=== PATIENT | male | born 1995 | race Caucasian/White ===

== ENCOUNTER 2017-04-02 20:37 | Emergency (ER) | payer OTHER ==
--- NOTE | 2017-04-02 22:13 | ERPHSYRPT ---
- History of Present Illness Time Seen by Provider: 04/02/17 22:00 Historian: patient Exam Limitations: no limitations Patient Subjective Stated Complaint: pt states he has been vomiting for last 3 days and has been feeling weak today. Triage Nursing Assessment: pt alert and oreinted, answers questions approp. pt ambulatory with steady gait ntoed. respriations nonlabored with lungs cta. abd soft and nontedner, bowel sounds presnt in all 4 quads. no emesis at this time Physician History: 21 y/o male comes to the ER with complaints of diffuse abdominal pain, nausea, vomiting and low grade fever for the past 3 days. Pt describes the pain as sharp , constant, 8/10 and pt has not been able to keep anything down. Pt denies any diarrhea, constipation, bloody stools or urinary symptoms. Pt has had hernia repair in the past. Timing/Duration: day(s) Activities at Onset: none Quality: sharpness Abdominal Pain Onset Location: generalized abdomen Pain Radiation: no radiation Severity of Pain-Max: severe Severity of Pain-Current: severe Modifying Factors: Improves With: nothing Associated Symptoms: loss of appetite Previous symptoms: no prior history Allergies/Adverse Reactions: No Known Drug Allergies Allergy (Unverified 07/08/14 18:11) Hx Tetanus, Diphtheria Vaccination/Date Given: Yes Hx Influenza Vaccination/Date Given: No Hx Pneumococcal Vaccination/Date Given: No Immunizations Up to Date: Yes - Review of Systems Constitutional: Fever, No Chills Eyes: No Symptoms Ears, Nose, & Throat: No Symptoms Respiratory: No Cough, No Dyspnea Cardiac: No Chest Pain, No Edema, No Syncope Abdominal/Gastrointestinal: Abdominal Pain, Nausea, Vomiting, Appetite Changes, No Diarrhea, No Constipation, No Hematemesis, No Hematochezia, No Melena Genitourinary Symptoms: No Dysuria, No Frequency, No Hematuria Musculoskeletal: No Back Pain, No Neck Pain Skin: No Rash Neurological: No Dizziness, No Focal Weakness, No Sensory Changes Psychological: No Symptoms Endocrine: No Symptoms All Other Systems: Reviewed and Negative - Past Medical History Pertinent Past Medical History: No Other Medical History: Periodic episodes of throat numbness-previous evaluations -undiagnosed - Past Surgical History Past Surgical History: Yes Gastrointestinal: Hernia Repair Other Surgical History: collar bone - Social History Smoking Status: Never smoker Exposure to second hand smoke: No Drug Use: none Patient Lives Alone: No Significant Family History: no pertinent family hx - Nursing Vital Signs Nursing Vital Signs: Initial Vital Signs Temperature 98.8 F 04/02/17 21:37 Pulse Rate 83 04/02/17 21:37 Respiratory Rate 16 04/02/17 21:37 Blood Pressure 129/75 04/02/17 21:37 O2 Sat by Pulse Oximetry 95 04/02/17 21:37 Pain Scale Pain Intensity 7 - Physical Exam General Appearance: mild distress, alert Eye Exam: PERRL/EOMI, eyes nml inspection Ears, Nose, Throat Exam: normal ENT inspection, pharynx normal, moist mucous membranes Neck Exam: normal inspection, non-tender, supple, full range of motion Respiratory Exam: normal breath sounds, lungs clear, No respiratory distress Cardiovascular Exam: regular rate/rhythm, normal heart sounds Gastrointestinal/Abdomen Exam: soft, tenderness, distention, No normal bowel sounds, No mass Back Exam: normal inspection, normal range of motion, No CVA tenderness, No vertebral tenderness Extremity Exam: normal inspection, normal range of motion, pelvis stable Neurologic Exam: alert, oriented x 3, cooperative, normal mood/affect, nml cerebellar function, sensation nml, No motor deficits Skin Exam: normal color, warm, dry SpO2: 95 Oxygen Delivery: Room Air - Course Nursing assessment & vital signs reviewed: Yes Ordered Tests: Active Orders 24 hr Category Date Time Status IV Insertion STAT Care 04/02/17 22:02 Active NPO (ED) STAT Care 04/02/17 22:02 Active ABDOMEN AND PELVIS W CONTRAST [CT] Stat Exams 04/02/17 22:02 Taken AMYLASE Stat Lab 04/02/17 22:19 Completed CBC W DIFF Stat Lab 04/02/17 22:19 Completed CMP Stat Lab 04/02/17 22:19 Completed LIPASE Stat Lab 04/02/17 22:19 Completed Lactic Acid Stat Lab 04/02/17 22:14 Completed UA W/RFX UR CULTURE Stat Lab 04/02/17 23:41 Completed Medication Summary Generic Name Dose Route Start Last Admin Trade Name Freq PRN Reason Stop Dose Admin Sodium Chloride 1,000 mls @ 999 mls/hr 04/02/17 22:58 Sodium Chloride 0.9% 1000 Ml IV 04/02/17 23:58 .Q1H1M STA Discontinued Medications Generic Name Dose Route Start Last Admin Trade Name Freq PRN Reason Stop Dose Admin Famotidine 20 mg 04/02/17 22:58 Pepcid 20 Mg Vial IV 04/02/17 22:59 STAT ONE Sodium Chloride 1,000 mls @ 999 mls/hr 04/02/17 22:02 04/02/17 23:02 Sodium Chloride 0.9% 1000 Ml IV 04/02/17 23:02 999 mls/hr .Q1H1M STA Administration Sodium Chloride Confirm 04/02/17 22:19 Sodium Chloride 0.9% 1000 Ml Administered 04/02/17 22:20 Dose 1,000 mls @ ud .ROUTE .STK-MED ONE Ketorolac Tromethamine 30 mg 04/02/17 22:58 Toradol 30 Mg Injection IV 04/02/17 22:59 STAT ONE Morphine Sulfate 4 mg 04/02/17 22:02 04/02/17 23:03 Morphine Sulfate 4 Mg Inj IV 04/02/17 22:03 4 mg STAT ONE Administration Morphine Sulfate Confirm 04/02/17 22:19 Morphine Sulfate 2 Mg Inj Administered 04/02/17 22:20 Dose 4 mg .ROUTE .STK-MED ONE Ondansetron HCl 4 mg 04/02/17 22:02 04/02/17 23:02 Zofran 4 Mg/2 Ml Vial IV 04/02/17 22:03 4 mg STAT ONE Administration Ondansetron HCl Confirm 04/02/17 22:19 Zofran 4 Mg/2 Ml Vial Administered 04/02/17 22:20 Dose 4 mg .ROUTE .STK-MED ONE Ondansetron HCl 4 mg 04/02/17 22:59 Zofran 4 Mg/2 Ml Vial IV 04/02/17 23:00 STAT ONE Lab/Rad Data: Laboratory Result Diagrams 04/02/17 22:19 04/02/17 22:19 Laboratory Results 04/02/17 04/02/17 04/02/17 Range/Units 23:41 22:19 22:19 WBC 11.5 H (4.0-10.5) K/mm3 RBC 5.22 (4.1-5.6) M/mm3 Hgb 15.0 (12.5-18.0) gm/dl Hct 45.6 (42-50) % MCV 87.4 (78-100) fl MCH 28.7 (26-32) pg MCHC 32.9 (32-36) g/dl RDW 14.4 H (11.5-14.0) % Plt Count 286 (150-450) K/mm3 MPV 9.9 H (6-9.5) fl Gran % 52.8 (36.0-66.0) % Lymphocytes % 36.9 (24.0-44.0) % Monocytes % 9.2 (0.0-12.0) % Eosinophils % 0.8 (0.00-5.0) % Basophils % 0.3 (0.0-0.4) % Basophils # 0.04 (0-0.4) Sodium 143 (136-145) mEq/L Potassium 3.7 (3.5-5.1) mEq/L Chloride 105 (98-107) mEq/L Carbon Dioxide 27.5 (21-32) mEq/L Anion Gap 14.0 (5-15) MEQ/L BUN 20 (9-20) mg/dL Creatinine 0.88 (0.55-1.30) mg/dl Estimated GFR > 60 ML/MIN Glucose 100 (70-110) MG/DL Lactic Acid (0.4-2.0) Calcium 10.1 (8.5-10.1) mg/dL Total Bilirubin 0.60 (0.2-1.0) mg/dL AST 40 H (15-37) U/L ALT 39 (12-78) U/L Alkaline Phosphatase 62 (46-116) U/L Serum Total Protein 8.7 H (6.4-8.2) gm/dL Albumin 4.9 (3.4-5.0) g/dL Amylase 115 (25-115) U/L Lipase 110 (73-393) U/L Ur Collection Type VOID Urine Color YELLOW (YELLOW) Urine Appearance CLEAR (CLEAR) Urine pH 8.0 (5-6) Ur Specific [place] 1.005 (1.005-1.025) Urine Protein NEGATIVE (Negative) Urine Ketones MODERATE (NEGATIVE) Urine Blood NEGATIVE (0-5) Osmany/ul Urine Nitrite NEGATIVE (NEGATIVE) Urine Bilirubin NEGATIVE (NEGATIVE) Urine Urobilinogen NORMAL (0-1) mg/dL Ur Leukocyte Esterase NEGATIVE (NEGATIVE) Urine Culture Reflexed NO (NO) Urine Glucose NEGATIVE (NEGATIVE) mg/dL Specimen Received 04/02/17 2330 04/02/17 Range/Units 22:14 WBC (4.0-10.5) K/mm3 RBC (4.1-5.6) M/mm3 Hgb (12.5-18.0) gm/dl Hct (42-50) % MCV (78-100) fl MCH (26-32) pg MCHC (32-36) g/dl RDW (11.5-14.0) % Plt Count (150-450) K/mm3 MPV (6-9.5) fl Gran % (36.0-66.0) % Lymphocytes % (24.0-44.0) % Monocytes % (0.0-12.0) % Eosinophils % (0.00-5.0) % Basophils % (0.0-0.4) % Basophils # (0-0.4) Sodium (136-145) mEq/L Potassium (3.5-5.1) mEq/L Chloride (98-107) mEq/L Carbon Dioxide (21-32) mEq/L Anion Gap (5-15) MEQ/L BUN (9-20) mg/dL Creatinine (0.55-1.30) mg/dl Estimated GFR ML/MIN Glucose (70-110) MG/DL Lactic Acid 1.2 (0.4-2.0) Calcium (8.5-10.1) mg/dL Total Bilirubin (0.2-1.0) mg/dL AST (15-37) U/L ALT (12-78) U/L Alkaline Phosphatase (46-116) U/L Serum Total Protein (6.4-8.2) gm/dL Albumin (3.4-5.0) g/dL Amylase (25-115) U/L Lipase (73-393) U/L Ur Collection Type Urine Color (YELLOW) Urine Appearance (CLEAR) Urine pH (5-6) Ur Specific [place] (1.005-1.025) Urine Protein (Negative) Urine Ketones (NEGATIVE) Urine Blood (0-5) Osmany/ul Urine Nitrite (NEGATIVE) Urine Bilirubin (NEGATIVE) Urine Urobilinogen (0-1) mg/dL Ur Leukocyte Esterase (NEGATIVE) Urine Culture Reflexed (NO) Urine Glucose (NEGATIVE) mg/dL Specimen Received - Progress Progress: improved Progress Note: 04/02/17 23:[address] scan abd/pelvis shows mild colitis. The white count is slightly elevated but the rest of the labs are within normal limits. Patient feels better after being giving NS fluids X 2 bags, zofran and morphine. - Departure Time of Disposition: 23:43 Departure Disposition: Home Clinical Impression: Colitis Condition: Stable Critical Care Time: No Referrals: KEVIN NGO MD [Primary Care Provider] - Instructions: Nausea -- Adult, Vomiting -- Adult Additional Instructions: Follow up with your primary care doctor if you should have worsening abdominal pain, nausea, vomiting, diarrhea, fever or chills. Prescriptions: Ondansetron ODT 4 MG [Zofran Odt 4 mg] 4 mg PO Q6H PRN PRN #10 tab.rapdis PRN Reason: Nausea/Vomiting Ketorolac Tromethamine [Toradol] 10 mg PO QID PRN #20 tablet PRN Reason: Nausea/Vomiting
[2017-04-02] MEDS ORDERED: MORPHINE SULFATE 2 MG INJ ONE (22:19)
[2017-04-02] MEDS ORDERED: Sodium Chloride 0.9% 1000 ML 1,000 ML ONE (22:19)
[2017-04-02] MEDS ORDERED: Zofran 4 MG/2 ML VIAL ONE (22:19)
[2017-04-02 22:23] LABS: BASOPHIL % 0.3 % (0.0-0.4); Basophil (Absolute #) 0.04 (0-0.4); Eosinophil % 0.8 % (0.00-5.0); Eosinophil (Absolute #) 0.09 (0-0.5); Granulocyte Absolute (ANC) 6.05 (1.4-6.9); Granulocytes % 52.8 % (36.0-66.0); Hematocrit 45.6 % (42-50); Lymphocyte (Absolute #) 4.23 (1.0-4.6); Lymphocytes % 36.9 % (24.0-44.0); Mean Cell Volume 87.4 fl (78-100); Mean Corpuscular Hemoglobin 28.7 pg (26-32); Mean Corpuscular Hgb Concent. 32.9 g/dl (32-36); Mean Platelet Volume 9.9 fl (6-9.5); Monocyte (Absolute #) 1.05 (0.0-1.3); Monocytes % 9.2 % (0.0-12.0); Platelet Count 286 K/mm3 (150-450); Red Blood Count 5.22 M/mm3 (4.1-5.6); Red Cell Distribution Width 14.4 % (11.5-14.0); White Blood Count 11.5 K/mm3 (4.0-10.5)
[2017-04-02 22:40] LABS: ALBUMIN 4.9 g/dL (3.4-5.0); ALKALINE PHOSPHATASE 62 U/L (46-116); AMYLASE 115 U/L (25-115); BLOOD UREA NITROGEN 20 mg/dL (9-20); CHLORIDE 105 mEq/L (98-107); Calcium 10.1 mg/dL (8.5-10.1); Carbon Dioxide 27.5 mEq/L (21-32); Creatinine 1 0.88 mg/dl (0.55-1.30); EST GLOMERULAR FILTRATION RATE > 60 ML/MIN; Glucose 100 MG/DL (70-110); LIPASE 110 U/L (73-393); Potassium 3.7 mEq/L (3.5-5.1); SGOT/AST 40 U/L (15-37); SGPT/ALT 39 U/L (12-78); SODIUM 143 mEq/L (136-145); Total Protein 8.7 gm/dL (6.4-8.2)
[2017-04-02] MEDS ORDERED: TORAdol 30 mg Injection IV ONE (22:58)
[2017-04-02] MEDS ORDERED: Pepcid 20 MG VIAL IV ONE (22:58)
[2017-04-02] MEDS ORDERED: Zofran 4 MG/2 ML VIAL IV ONE (22:59)
[2017-04-02] MEDS: Sodium Chloride 0.9% 1000 ML 1,000 ML IV STA (23:02)
[2017-04-02] MEDS: Zofran 4 MG/2 ML VIAL IV ONE (23:02)
[2017-04-02] MEDS: MORPHINE SULFATE 4 MG INJ IV ONE (23:03)
[2017-04-02 23:38] VITALS: PULSE 89
[2017-04-02 23:45] VITALS: O2SAT 95
[2017-04-02 23:48] LABS: Appearance CLEAR (CLEAR); Bilirubin NEGATIVE (NEGATIVE); Blood NEGATIVE Ery/ul (0-5); Glucose NEGATIVE (NEGATIVE); Ketones MODERATE (NEGATIVE); Leukocyte Esterase NEGATIVE (NEGATIVE); Nitrite NEGATIVE (NEGATIVE); Protein,Urine Dip NEGATIVE (Negative); Specific Gravity 1.005 (1.005-1.025); Urobilinogen NORMAL mg/dL (0-1)
[2017-04-03] MEDS: Sodium Chloride 0.9% 1000 ML 1,000 ML IV STA (00:15)
[2017-04-03 00:27] VITALS: BP 112/70
--- NOTE | 2017-04-03 08:42 | XRAY ---
Indication: Nausea, vomiting, weakness, and fever. Multiple contiguous axial images obtained through the abdomen and pelvis using 80 cc Isovue 370 contrast. Comparison: None Lung bases are clear. Heart is not enlarged. Study slightly degraded by respiration artifact. Noncontrasted stomach and bowel loops appear nonobstructed. Normal appendix. There is subtle haziness involving the distal descending and sigmoid colon either respiration artifact versus low-grade colitis. No free fluid/air. Remaining liver, gallbladder, pancreas, spleen, adrenal glands, kidneys, ureters, bladder, and aorta appear normal in CT appearance and attenuation. No pathologic retroperitoneal lymphadenopathy. Osseous structures intact. Impression: Subtle distal descending and sigmoid colon haziness either respiration artifact versus low-grade colitis. Comment: Preliminary interpretation was made by [facility]. No discrepancy. CT DI 10.11
== END 2017-04-03 00:28 | disposition home or self-care (01) ==
LOC: ED 20:37
DX: K52.9 Noninfective gastroenteritis and colitis, unspecified (principal); R10.9 Unspecified abdominal pain; R11.2 Nausea with vomiting, unspecified
CPT/HCPCS: 36000; 36415; 74177; 80053; 81002; 82150; 83605; 83690; 85025; 96360; 96361; 96374; 96375; 96376; 99284; J2270; J2405

== ENCOUNTER 2018-06-07 17:29 | Emergency (ER) | payer OTHER ==
[2018-06-07] MEDS ORDERED: TORAdol 30 mg Injection IV ONE (18:16)
[2018-06-07] MEDS ORDERED: Sodium Chloride 0.9% 1000 ML 1,000 ML IV STA (18:16)
--- NOTE | 2018-06-07 18:22 | ERPHSYRPT ---
- History of Present Illness Time Seen by Provider: 06/07/18 18:02 Historian: patient Exam Limitations: no limitations Patient Subjective Stated Complaint: 2 WEEK BILATERAL FLANK PAIN. STATES WORSE THE LAST 2 DAYS, UNABLE TO FINISH WORK. STATES UNABLE TO EAT MUCH PROGRESSIVELY OVER PAST 2 WEEKS. DENIES VOMITING. HAS NAUSEA. DENIES SHORTNESS OF BREATH, CONGESTION. NON PRODUCTIVE COUGH. STATES LOWER ABDOMINAL PAIN STARTING TODAY. Triage Nursing Assessment: ALERT AND ORIENTED SKIN PWD. PT ABLE TO AMBULATE TO ROOM, AND DRESS SELF IN GOWN WITHOUT DIFFICULTY. LUNGS CLEAR TO AUSCULTATION. BOWEL SOUNDS PRESENT ALL 4 QUADS. 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 Physician History: C/o bilateral flank pain, more severe on the left x 2 weeks, worse over the last 2 days, denies fever, chills, nausea, vomiting, diarrhea, urinary complaints, chest pain, SOB, other complaints. Timing/Duration: week(s) (2) Activities at Onset: none Quality: sharpness Abdominal Pain Onset Location: LUQ Pain Radiation: no radiation, flank (bilateral) Severity of Pain-Max: severe Severity of Pain-Current: severe Modifying Factors: Improves With: nothing Associated Symptoms: denies symptoms, No chest pain, No nausea, No rash, No shortness of breath, No testicular pain, No vomiting Previous symptoms: no prior history Allergies/Adverse Reactions: No Known Drug Allergies Allergy (Verified 04/02/17 23:50) Home Medications: Clonazepam 1 mg PO BID 06/07/18 [History] PANTOPRAZOLE 40 mg Tablet [Protonix 40MG Tablet] 40 mg PO DAILY 06/07/18 [ History] Hx Tetanus, Diphtheria Vaccination/Date Given: Yes Hx Influenza Vaccination/Date Given: No Hx Pneumococcal Vaccination/Date Given: No Immunizations Up to Date: Yes - Review of Systems Constitutional: No Symptoms Ears, Nose, & Throat: No Symptoms Respiratory: No Symptoms Cardiac: No Symptoms Abdominal/Gastrointestinal: Abdominal Pain, No Nausea, No Vomiting, No Diarrhea , No Constipation, No Melena Genitourinary Symptoms: Flank Pain (bilateral) Musculoskeletal: No Symptoms Skin: No Symptoms Neurological: No Symptoms All Other Systems: Reviewed and Negative - Past Medical History Pertinent Past Medical History: Yes Neurological History: Migraines Cardiac History: No Pertinent History Respiratory History: No Pertinent History Endocrine Medical History: No Pertinent History Musculoskeletal History: Osteoarthritis GI Medical History: Colitis, Hernia Psycho-Social History: Depression Other Medical History: phenobarbital for migraines in the past - Past Surgical History Past Surgical History: Yes Gastrointestinal: Hernia Repair Other Surgical History: collar bone, HERNIA REPAIR X 2 - Social History Smoking Status: Never smoker Exposure to second hand smoke: No Drug Use: none Patient Lives Alone: No Significant Family History: no pertinent family hx - Nursing Vital Signs Nursing Vital Signs: Initial Vital Signs Temperature 98.6 F 06/07/18 17:29 Pulse Rate 82 06/07/18 17:29 Respiratory Rate 18 06/07/18 17:29 Blood Pressure 144/99 06/07/18 17:29 O2 Sat by Pulse Oximetry 95 06/07/18 17:29 Pain Scale Pain Intensity 6 - Physical Exam General Appearance: no apparent distress Eye Exam: eyes nml inspection Ears, Nose, Throat Exam: normal ENT inspection, pharynx normal, moist mucous membranes Neck Exam: normal inspection, non-tender, supple Respiratory Exam: normal breath sounds, lungs clear, airway intact, No chest tenderness Cardiovascular Exam: regular rate/rhythm, normal heart sounds, normal peripheral pulses, capillary refill <2 sec, No murmur Gastrointestinal/Abdomen Exam: soft, normal bowel sounds, tenderness ( generalized), No distention, No mass, No guarding, No ecchymosis, No pulsatile mass, No rebound, No hernia, No organomegaly Back Exam: normal inspection, CVA tenderness (bilateral), No vertebral tenderness Extremity Exam: normal inspection Neurologic Exam: alert, oriented x 3, cooperative, normal mood/affect Skin Exam: normal color, warm, dry, No rash, No petechiae, No cyanosis Lymphatic Exam: No adenopathy SpO2 Interpretation: normal SpO2: 95 O2 Delivery: Room Air - Course Nursing assessment & vital signs reviewed: Yes - CT Exams Abdomen/Pelvis CT Interpretation: Negative, Tele-radiologist Report Ordered Tests: Active Orders 24 hr Category Date Time Status IV Insertion STAT Care 06/07/18 18:16 Active ABDOMEN AND PELVIS W/0 CONTRAS [CT] Stat Exams 06/07/18 18:17 Taken CBC W DIFF Stat Lab 06/07/18 18:19 Completed CMP Stat Lab 06/07/18 18:19 Completed LIPASE Stat Lab 06/07/18 18:19 Completed UA W/RFX UR CULTURE Stat Lab 06/07/18 19:10 Completed Urine Triage Profile Stat Lab 06/07/18 19:10 Completed Medication Summary Discontinued Medications Generic Name Dose Route Start Last Admin Trade Name Cece PRN Reason Stop Dose Admin Sodium Chloride 1,000 mls @ 999 mls/hr 06/07/18 18:16 06/07/18 18:57 Sodium Chloride 0.9% 1000 Ml IV 06/07/18 19:16 999 mls/hr .Q1H1M STA Administration Sodium Chloride Confirm 06/07/18 18:35 Sodium Chloride 0.9% 1000 Ml Administered 06/07/18 18:36 Dose 1,000 mls @ ud .ROUTE .STK-MED ONE Ketorolac Tromethamine 30 mg 06/07/18 18:16 06/07/18 18:58 Toradol 30 Mg Injection IV 06/07/18 18:17 30 mg STAT ONE Administration Ketorolac Tromethamine Confirm 06/07/18 18:35 Toradol 30 Mg Injection Administered 06/07/18 18:36 Dose 30 mg .ROUTE .STK-MED ONE Lab/Rad Data: Laboratory Result Diagrams 06/07/18 18:19 06/07/18 18:19 Laboratory Results 06/07/18 06/07/18 06/07/18 Range/Units 19:10 19:10 18:19 WBC (4.0-10.5) K/mm3 RBC (4.1-5.6) M/mm3 Hgb (12.5-18.0) gm/dl Hct (42-50) % MCV (78-100) fl MCH (26-32) pg MCHC (32-36) g/dl RDW (11.5-14.0) % Plt Count (150-450) K/mm3 MPV (6-9.5) fl Gran % (36.0-66.0) % Eos # (Auto) (0-0.5) Absolute Lymphs (auto) (1.0-4.6) Absolute Monos (auto) (0.0-1.3) Lymphocytes % (24.0-44.0) % Monocytes % (0.0-12.0) % Eosinophils % (0.00-5.0) % Basophils % (0.0-0.4) % Absolute Granulocytes (1.4-6.9) Basophils # (0-0.4) Sodium 143 (137-145) mmol/L Potassium 3.1 L (3.5-5.1) mmol/L Chloride 108 H (98-107) mmol/L Carbon Dioxide 23 (22-30) mmol/L Anion Gap 15.3 H (5-15) MEQ/L BUN 18 (9-20) mg/dL Creatinine 0.94 (0.66-1.25) mg/dL Estimated GFR > 60.0 ML/MIN Glucose 116 H (74-106) mg/dL Calcium 10.2 (8.4-10.2) mg/dL Total Bilirubin 0.60 (0.2-1.3) mg/dL AST 25 (17-59) U/L ALT 20 (0-50) U/L Alkaline Phosphatase 72 (38-126) U/L Serum Total Protein 8.0 (6.3-8.2) g/dL Albumin 4.6 (3.5-5.0) g/dL Lipase 42 (23-300) U/L Urine Color JOEY (YELLOW) Urine Appearance CLEAR (CLEAR) Urine pH 5.0 (5-6) Ur Specific [place] 1.024 (1.005-1.025) Urine Protein NEGATIVE (Negative) Urine Ketones SMALL (NEGATIVE) Urine Blood NEGATIVE (0-5) Osmany/ul Urine Nitrite POSITIVE (NEGATIVE) Urine Bilirubin NEGATIVE (NEGATIVE) Urine Urobilinogen 4 (0-1) mg/dL Ur Leukocyte Esterase NEGATIVE (NEGATIVE) Urine WBC (Auto) 3-5 (0-5) /HPF Urine RBC (Auto) 0-2 (0-2) /HPF U Epithel Cells (Auto) NONE (FEW) /HPF Urine Bacteria (Auto) NONE SEEN (NEGATIVE) /HPF Other Casts (Auto) NEGATIVE (NEGATIVE) /LPF Urine Mucus (Auto) SLIGHT (NEGATIVE) /HPF Urine Culture Reflexed NO (NO) Urine Glucose NEGATIVE (NEGATIVE) mg/dL Urine Opiates Level NEGATIVE (NEGATIVE) Ur Methadone NEGATIVE (NEGATIVE) Urine Barbiturates NEGATIVE (NEGATIVE) Ur Phencyclidine (PCP) NEGATIVE (NEGATIVE) Urine Amphetamine NEGATIVE (NEGATIVE) U Benzodiazepine Level NEGATIVE (NEGATIVE) Urine Cocaine NEGATIVE (NEGATIVE) Urine Marijuana (THC) POSITIVE (NEGATIVE) 06/07/18 Range/Units 18:19 WBC 7.0 (4.0-10.5) K/mm3 RBC 4.79 (4.1-5.6) M/mm3 Hgb 14.1 (12.5-18.0) gm/dl Hct 42.3 (42-50) % MCV 88.3 (78-100) fl MCH 29.4 (26-32) pg MCHC 33.3 (32-36) g/dl RDW 14.3 H (11.5-14.0) % Plt Count 223 (150-450) K/mm3 MPV 10.5 H (6-9.5) fl Gran % 42.4 (36.0-66.0) % Eos # (Auto) 0.06 (0-0.5) Absolute Lymphs (auto) 2.45 (1.0-4.6) Absolute Monos (auto) 1.49 H (0.0-1.3) Lymphocytes % 35.1 (24.0-44.0) % Monocytes % 21.3 H (0.0-12.0) % Eosinophils % 0.9 (0.00-5.0) % Basophils % 0.3 (0.0-0.4) % Absolute Granulocytes 2.97 (1.4-6.9) Basophils # 0.02 (0-0.4) Sodium (137-145) mmol/L Potassium (3.5-5.1) mmol/L Chloride (98-107) mmol/L Carbon Dioxide (22-30) mmol/L Anion Gap (5-15) MEQ/L BUN (9-20) mg/dL Creatinine (0.66-1.25) mg/dL Estimated GFR ML/MIN Glucose (74-106) mg/dL Calcium (8.4-10.2) mg/dL Total Bilirubin (0.2-1.3) mg/dL AST (17-59) U/L ALT (0-50) U/L Alkaline Phosphatase (38-126) U/L Serum Total Protein (6.3-8.2) g/dL Albumin (3.5-5.0) g/dL Lipase (23-300) U/L Urine Color (YELLOW) Urine Appearance (CLEAR) Urine pH (5-6) Ur Specific [place] (1.005-1.025) Urine Protein (Negative) Urine Ketones (NEGATIVE) Urine Blood (0-5) Osmany/ul Urine Nitrite (NEGATIVE) Urine Bilirubin (NEGATIVE) Urine Urobilinogen (0-1) mg/dL Ur Leukocyte Esterase (NEGATIVE) Urine WBC (Auto) (0-5) /HPF Urine RBC (Auto) (0-2) /HPF U Epithel Cells (Auto) (FEW) /HPF Urine Bacteria (Auto) (NEGATIVE) /HPF Other Casts (Auto) (NEGATIVE) /LPF Urine Mucus (Auto) (NEGATIVE) /HPF Urine Culture Reflexed (NO) Urine Glucose (NEGATIVE) mg/dL Urine Opiates Level (NEGATIVE) Ur Methadone (NEGATIVE) Urine Barbiturates (NEGATIVE) Ur Phencyclidine (PCP) (NEGATIVE) Urine Amphetamine (NEGATIVE) U Benzodiazepine Level (NEGATIVE) Urine Cocaine (NEGATIVE) Urine Marijuana (THC) (NEGATIVE) - Progress Progress: improved Progress Note: 06/07/18 19:54 Pt states, he improved, still nauseated, given Zofran ODT, afebrile and stable, he is being discharged home to rest x 2-3 days, apply moist heat to his back and follow up with his physician in 2-3 days. Counseled pt/family regarding: lab results, diagnosis, need for follow-up, rad results - Departure Departure Disposition: Home Clinical Impression: Back pain Qualifiers: Back pain location: low back pain Chronicity: acute Back pain laterality: bilateral Sciatica presence: without sciatica Qualified Code(s): M54.5 - Low back pain Condition: Stable Critical Care Time: No Referrals: KEVIN NGO MD [Primary Care Provider] - Instructions: Low Back Pain in Adults Additional Instructions: Rest x 2-3 days, apply moist heat to back, and follow up with your physician in 2-3 days, return if severe pain, vomiting, fever> 102 F or sudden leg weakness, numbness, loss of bladder, bowel control! Prescriptions: Cyclobenzaprine HCl 10 mg [Cyclobenzaprine 10 MG] 10 mg PO TID #15 tablet Naproxen 375 mg [Naprosyn 375 mg] 375 mg PO BID PRN #15 tablet PRN Reason: Moderate Pain
[2018-06-07 18:23] LABS: BASOPHIL % 0.3 % (0.0-0.4); Basophil (Absolute #) 0.02 (0-0.4); Eosinophil % 0.9 % (0.00-5.0); Eosinophil (Absolute #) 0.06 (0-0.5); Granulocyte Absolute (ANC) 2.97 (1.4-6.9); Granulocytes % 42.4 % (36.0-66.0); Hematocrit 42.3 % (42-50); Hemoglobin 14.1 gm/dl (12.5-18.0); Lymphocyte (Absolute #) 2.45 (1.0-4.6); Lymphocytes % 35.1 % (24.0-44.0); Mean Cell Volume 88.3 fl (78-100); Mean Corpuscular Hemoglobin 29.4 pg (26-32); Mean Corpuscular Hgb Concent. 33.3 g/dl (32-36); Mean Platelet Volume 10.5 fl (6-9.5); Monocyte (Absolute #) 1.49 (0.0-1.3); Monocytes % 21.3 % (0.0-12.0); Platelet Count 223 K/mm3 (150-450); Red Blood Count 4.79 M/mm3 (4.1-5.6); Red Cell Distribution Width 14.3 % (11.5-14.0)
[2018-06-07] MEDS ORDERED: TORAdol 30 mg Injection ONE (18:35)
[2018-06-07] MEDS ORDERED: Sodium Chloride 0.9% 1000 ML 1,000 ML ONE (18:35)
[2018-06-07 18:36] LABS: ALBUMIN 4.6 g/dL (3.5-5.0); ALKALINE PHOSPHATASE 72 U/L (38-126); ANION GAP 15.3 MEQ/L (5-15); BLOOD UREA NITROGEN 18 mg/dL (9-20); CHLORIDE 108 mmol/L (98-107); Calcium 10.2 mg/dL (8.4-10.2); Carbon Dioxide 23 mmol/L (22-30); Creatinine 1 0.94 mg/dL (0.66-1.25); Glucose 116 mg/dL (74-106); LIPASE 42 U/L (23-300); Potassium 3.1 mmol/L (3.5-5.1); SGOT/AST 25 U/L (17-59); SGPT/ALT 20 U/L (0-50); SODIUM 143 mmol/L (137-145)
[2018-06-07 19:21] LABS: Appearance CLEAR (CLEAR); Bilirubin NEGATIVE (NEGATIVE); Blood NEGATIVE Ery/ul (0-5); Glucose NEGATIVE (NEGATIVE); Ketones SMALL (NEGATIVE); Leukocyte Esterase NEGATIVE (NEGATIVE); Mucus SLIGHT /HPF (NEGATIVE); Nitrite POSITIVE (NEGATIVE); Protein,Urine Dip NEGATIVE (Negative); RBC 0-2 /HPF (0-2); Specific Gravity 1.024 (1.005-1.025); Urobilinogen 4 mg/dL (0-1)
[2018-06-07 19:22] LABS: Bacteria NONE SEEN /HPF (NEGATIVE)
[2018-06-07 19:29] LABS: Amphetamine,Urine NEGATIVE (NEGATIVE); Barbiturate,Urine NEGATIVE (NEGATIVE); Benzodiazepine,Urine NEGATIVE (NEGATIVE); Cocaine,Urine NEGATIVE (NEGATIVE); Methadone,Urine NEGATIVE (NEGATIVE); Opiate,Urine NEGATIVE (NEGATIVE); PCP,Urine NEGATIVE (NEGATIVE); THC,Urine POSITIVE (NEGATIVE)
[2018-06-07] MEDS ORDERED: ZOFRAN ODT 4 MG PO ONE (19:53)
[2018-06-07] MEDS ORDERED: ZOFRAN ODT 4 MG ONE (19:57)
[2018-06-07 20:16] VITALS: BP 111/75; PULSE 91; O2SAT 96
--- NOTE | 2018-06-08 09:00 | XRAY ---
Indication: Flank and lower abdomen pain. Multiple contiguous axial images obtained through the abdomen and pelvis without contrast as ordered. Comparison: April 02, 2017. Lung bases remain clear. Heart is not enlarged. Stomach is distended with food/fluid. Noncontrasted stomach and bowel loops appear nonobstructed. Normal appendix. Minimal sigmoid diverticulosis without diverticulitis. Remaining liver, gallbladder, pancreas, spleen, adrenal glands, kidneys, ureters, bladder, and aorta appear unremarkable for noncontrast exam. Osseous structures intact. No ventral or inguinal hernias. Impression: 1. Sigmoid diverticulosis. 2. Remaining CT abdomen/pelvis without contrast exam is negative. Comment: Preliminary interpretation was made by [facility]. No critical discrepancy. CT DI 8.60
== END 2018-06-07 20:20 | disposition home or self-care (01) ==
LOC: ED 17:29
DX: M54.5 Low back pain (principal); R10.12 Left upper quadrant pain
CPT/HCPCS: 36000; 36415; 74176; 80053; 80307; 81001; 83690; 85025; 96360; 96374; 99284; J1885; Q0162

== ENCOUNTER 2020-06-23 08:29 | Emergency (ER) | payer OTHER ==
[2020-06-23] MEDS ORDERED: MORPHINE SULFATE 4 MG INJ IV ONE (09:36)
[2020-06-23] MEDS ORDERED: Sodium Chloride 0.9% 1000 ML 1,000 ML IV STA (09:36)
[2020-06-23] MEDS ORDERED: Zofran 4 MG/2 ML VIAL IV ONE (09:36)
--- NOTE | 2020-06-23 09:40 | ERPHSYRPT ---
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 pt states pain is wilmer and radiates to right upper back. pt reports unable to tolerate food or liquids causing nausea and had "induced own vomiting" Triage Nursing Assessment: Here for abd pain pt arrives pale w/d resp easy a@ox3 pt guarding abdomen at this time pain reports pain worse with palpation. diarrhea present reports approx 3 movements a day. Physician History: 24 years old male presented to the ER with chief complaint of upper abdominal pain for the last 3 days, continuous, sharp nature moderate to severe intensity with associated nausea and multiple episodes of nonprojectile, nonbilious vomiting with no hematemesis. Patient reports oral intake makes it worse. Reports having similar symptoms almost 2 weeks ago which subsided on its own without any medical attention. Denies fever or chills. Denies any difficulty urination or history of kidney stones. Timing/Duration: day(s) (3), gradual onset, worse Activities at Onset: rest Quality: sharpness Abdominal Pain Onset Location: RUQ, LUQ, epigastric, periumbilical Pain Radiation: back Severity of Pain-Max: severe Severity of Pain-Current: moderate Modifying Factors: Worsens With: eating, movement, palpation Associated Symptoms: nausea, vomiting Previous symptoms: same symptoms as today Allergies/Adverse Reactions: No Known Drug Allergies Allergy (Verified 06/23/20 08:50) Home Medications: No Reportable Medications [No Reported Medications] 06/23/20 [History] Hx Tetanus, Diphtheria Vaccination/Date Given: Yes Hx Influenza Vaccination/Date Given: No Hx Pneumococcal Vaccination/Date Given: No Travel Risk - International Travel Have you traveled outside of the country in past 3 weeks: No - Coronavirus Screening Are you exhibiting any of the following symptoms?: No Close contact with a COVID-19 positive Pt in past 14-21 Days: No - Vaccine Status Have you recieved a Covid-19 vaccination: No - Review of Systems Constitutional: No Symptoms Eyes: No Symptoms Ears, Nose, & Throat: No Symptoms Respiratory: No Symptoms Cardiac: No Symptoms Abdominal/Gastrointestinal: Abdominal Pain, Nausea, Vomiting Genitourinary Symptoms: No Symptoms Musculoskeletal: No Symptoms Skin: No Symptoms Neurological: No Symptoms Psychological: No Symptoms Endocrine: No Symptoms Hematologic/Lymphatic: No Symptoms Immunological/Allergic: No Symptoms - Past Medical History Pertinent Past Medical History: Yes Neurological History: Migraines Cardiac History: No Pertinent History Respiratory History: No Pertinent History Endocrine Medical History: No Pertinent History Musculoskeletal History: Osteoarthritis GI Medical History: Colitis, Hernia Psycho-Social History: Depression Other Medical History: phenobarbital for migraines in the past - Past Surgical History Past Surgical History: Yes Gastrointestinal: Hernia Repair Other Surgical History: collar bone, HERNIA REPAIR X 2 - Social History Smoking Status: Never smoker Exposure to second hand smoke: No Drug Use: none Patient Lives Alone: No Significant Family History: no pertinent family hx - Nursing Vital Signs Nursing Vital Signs: Initial Vital Signs Temperature 98.7 F 06/23/20 08:38 Pulse Rate 86 06/23/20 08:38 Respiratory Rate 18 06/23/20 08:38 Blood Pressure 135/83 06/23/20 08:38 O2 Sat by Pulse Oximetry 97 06/23/20 08:38 Pain Scale Pain Intensity 7 - Physical Exam General Appearance: no apparent distress, alert Eye Exam: PERRL/EOMI, eyes nml inspection Ears, Nose, Throat Exam: normal ENT inspection, TMs normal, pharyngeal erythema Neck Exam: normal inspection, non-tender, supple, full range of motion Respiratory Exam: normal breath sounds, lungs clear Cardiovascular Exam: regular rate/rhythm, normal heart sounds Gastrointestinal/Abdomen Exam: soft, tenderness (Upper abdomen with more in the epigastric area), guarding, No normal bowel sounds, No rebound Back Exam: normal inspection, normal range of motion, No CVA tenderness Extremity Exam: normal inspection, normal range of motion, pelvis stable Neurologic Exam: alert, oriented x 3, cooperative Skin Exam: normal color SpO2 Interpretation: normal SpO2: 97 O2 Delivery: Room Air Ordered Tests: Active Orders 24 hr Category Date Time Status IV Insertion STAT Care 06/23/20 09:36 Active NPO (ED) STAT Care 06/23/20 09:36 Active ABDOMEN AND PELVIS W CONTRAST [CT] Stat Exams 06/23/20 09:36 Completed Ultrasound Gallbladder [GALLBLADDER] [US] Stat Exams 06/23/20 Ordered AMYLASE Stat Lab 06/23/20 09:30 Completed CBC W DIFF Stat Lab 06/23/20 09:30 Completed CMP Stat Lab 06/23/20 09:30 Completed LIPASE Stat Lab 06/23/20 09:30 Completed UA W/RFX UR CULTURE Stat Lab 06/23/20 10:51 Completed Medication Summary Generic Name Dose Route Start Last Admin Trade Name Cece PRN Reason Stop Dose Admin Piperacillin Sod/Tazobactam 100 mls @ 200 mls/hr 06/23/20 11:55 Sod 3.375 gm/ Sodium Chloride IV 06/23/20 12:24 STAT ONE Discontinued Medications Generic Name Dose Route Start Last Admin Trade Name Cece PRN Reason Stop Dose Admin Sodium Chloride 1,000 mls @ 999 mls/hr 06/23/20 09:36 06/23/20 10:45 Sodium Chloride 0.9% 1000 Ml IV 06/23/20 10:36 999 mls/hr .Q1H1M STA Administration Sodium Chloride Confirm 06/23/20 10:03 Sodium Chloride 0.9% 1000 Ml Administered 06/23/20 10:04 Dose 1,000 mls @ ud .ROUTE .STK-MED ONE Morphine Sulfate 4 mg 06/23/20 09:36 06/23/20 10:45 Morphine Sulfate 4 Mg Inj IV 06/23/20 09:37 4 mg STAT ONE Administration Morphine Sulfate Confirm 06/23/20 10:03 Morphine Sulfate 4 Mg Inj Administered 06/23/20 10:04 Dose 4 mg .ROUTE .STK-MED ONE Ondansetron HCl 4 mg 06/23/20 09:36 06/23/20 10:45 Zofran 4 Mg/2 Ml Vial IV 06/23/20 09:37 4 mg STAT ONE Administration Ondansetron HCl Confirm 06/23/20 10:03 Zofran 4 Mg/2 Ml Vial Administered 06/23/20 10:04 Dose 4 mg .ROUTE .STK-MED ONE Lab/Rad Data: Laboratory Result Diagrams 06/23/20 09:30 06/23/20 09:30 Laboratory Results 06/23/20 06/23/20 06/23/20 Range/Units 10:51 09:30 09:30 WBC (4.0-10.5) K/mm3 RBC (4.1-5.6) M/mm3 Hgb (12.5-18.0) gm/dl Hct (42-50) % MCV (78-100) fl MCH (26-32) pg MCHC (32-36) g/dl RDW (11.5-14.0) % Plt Count (150-450) K/mm3 MPV (7.5-11.0) fl Gran % (36.0-66.0) % Eos # (Auto) (0-0.5) Absolute Lymphs (auto) (1.0-4.6) Absolute Monos (auto) (0.0-1.3) Lymphocytes % (24.0-44.0) % Monocytes % (0.0-12.0) % Eosinophils % (0.00-5.0) % Basophils % (0.0-0.4) % Absolute Granulocytes (1.4-6.9) Basophils # (0-0.4) Sodium 142 (137-145) mmol/L Potassium 3.5 (3.5-5.1) mmol/L Chloride 100 (98-107) mmol/L Carbon Dioxide 29 (22-30) mmol/L Anion Gap 15.7 H (5-15) MEQ/L BUN 14 (9-20) mg/dL Creatinine 0.76 (0.66-1.25) mg/dL Estimated GFR > 60.0 ML/MIN Glucose 128 H (74-106) mg/dL Calcium 10.3 H (8.4-10.2) mg/dL Total Bilirubin 3.70 H (0.2-1.3) mg/dL AST 481 H (17-59) U/L ALT 528 H (0-50) U/L Alkaline Phosphatase 180 H (38-126) U/L Serum Total Protein 8.4 H (6.3-8.2) g/dL Albumin 5.0 (3.5-5.0) g/dL Amylase 106 (30-110) U/L Lipase 77 (23-300) U/L Urine Color JOEY (YELLOW) Urine Appearance CLEAR (CLEAR) Urine pH 7.0 (5-6) Ur Specific [place] 1.031 (1.005-1.025) Urine Protein 100 (Negative) Urine Ketones MODERATE (NEGATIVE) Urine Blood NEGATIVE (0-5) Osmany/ul Urine Nitrite NEGATIVE (NEGATIVE) Urine Bilirubin MODERATE (NEGATIVE) Urine Urobilinogen 4 (0-1) mg/dL Ur Leukocyte Esterase NEGATIVE (NEGATIVE) Urine WBC (Auto) 3-5 (0-5) /HPF Urine RBC (Auto) 0-2 (0-2) /HPF U Epithel Cells (Auto) FEW (FEW) /HPF Urine Bacteria (Auto) FEW (NEGATIVE) /HPF Urine Mucus (Auto) MANY (NEGATIVE) /HPF Urine Culture Reflexed NO (NO) Urine Glucose NEGATIVE (NEGATIVE) mg/dL 06/23/20 Range/Units 09:30 WBC 7.1 (4.0-10.5) K/mm3 RBC 4.97 (4.1-5.6) M/mm3 Hgb 14.8 (12.5-18.0) gm/dl Hct 45.3 (42-50) % MCV 91.1 (78-100) fl MCH 29.8 (26-32) pg MCHC 32.7 (32-36) g/dl RDW 14.4 H (11.5-14.0) % Plt Count 286 (150-450) K/mm3 MPV 9.9 (7.5-11.0) fl Gran % 65.1 (36.0-66.0) % Eos # (Auto) 0.15 (0-0.5) Absolute Lymphs (auto) 1.59 (1.0-4.6) Absolute Monos (auto) 0.68 (0.0-1.3) Lymphocytes % 22.6 L (24.0-44.0) % Monocytes % 9.6 (0.0-12.0) % Eosinophils % 2.1 (0.00-5.0) % Basophils % 0.6 (0.0-0.4) % Absolute Granulocytes 4.59 (1.4-6.9) Basophils # 0.04 (0-0.4) Sodium (137-145) mmol/L Potassium (3.5-5.1) mmol/L Chloride (98-107) mmol/L Carbon Dioxide (22-30) mmol/L Anion Gap (5-15) MEQ/L BUN (9-20) mg/dL Creatinine (0.66-1.25) mg/dL Estimated GFR ML/MIN Glucose (74-106) mg/dL Calcium (8.4-10.2) mg/dL Total Bilirubin (0.2-1.3) mg/dL AST (17-59) U/L ALT (0-50) U/L Alkaline Phosphatase (38-126) U/L Serum Total Protein (6.3-8.2) g/dL Albumin (3.5-5.0) g/dL Amylase (30-110) U/L Lipase (23-300) U/L Urine Color (YELLOW) Urine Appearance (CLEAR) Urine pH (5-6) Ur Specific [place] (1.005-1.025) Urine Protein (Negative) Urine Ketones (NEGATIVE) Urine Blood (0-5) Osmany/ul Urine Nitrite (NEGATIVE) Urine Bilirubin (NEGATIVE) Urine Urobilinogen (0-1) mg/dL Ur Leukocyte Esterase (NEGATIVE) Urine WBC (Auto) (0-5) /HPF Urine RBC (Auto) (0-2) /HPF U Epithel Cells (Auto) (FEW) /HPF Urine Bacteria (Auto) (NEGATIVE) /HPF Urine Mucus (Auto) (NEGATIVE) /HPF Urine Culture Reflexed (NO) Urine Glucose (NEGATIVE) mg/dL - Progress Progress: improved, re-examined Progress Note: 06/23/20 11:35 24 years old is evaluated for upper abdominal pain with vomiting for the last 3 days. Patient is given fluid bolus and symptomatic treatment for pain, reevaluation feeling better. Work-up showed normal white count. Chemistry profile showed elevated liver enzymes with the total bilirubin of 3.7. CT abdomen pelvis with contrast showed minimal gallbladder wall thickening and CBD with no visible stone and CBD 9 mm. Will obtain ultrasound for further evaluation of gallbladder. I have discussed with Dr. Shay Dudley who recommended patient to be transferred at a facility with ERCP services to rule out choledocholithiasis before cholecystectomy. I have called [facility] with no GI with ERCP services available. [facility] center is called and patient will be transferred to [facility]. Plan discussed with patient and family who understand and agree with it. 06/23/20 11:53 Discussed with [facility] hospitalist Dr. Tiffanie Schofield, reviewed presentation, work-up and current plan and patient is accepted for transfer. Discussed with .: [place] Counseled pt/family regarding: lab results, diagnosis, rad results - Departure Departure Disposition: Transfer Clinical Impression: Cholecystitis Condition: Stable Critical Care Time: No Referrals: KEVIN NGO MD [Primary Care Provider] -
[2020-06-23 09:44] LABS: Absolute Neutrophil Ct (ANC) 4.59 (1.4-6.9); BASOPHIL % 0.6 % (0.0-0.4); Basophil (Absolute #) 0.04 (0-0.4); Eosinophil % 2.1 % (0.00-5.0); Eosinophil (Absolute #) 0.15 (0-0.5); Hematocrit 45.3 % (42-50); Hemoglobin 14.8 gm/dl (12.5-18.0); Lymphocyte (Absolute #) 1.59 (1.0-4.6); Lymphocytes % 22.6 % (24.0-44.0); Mean Cell Volume 91.1 fl (78-100); Mean Corpuscular Hemoglobin 29.8 pg (26-32); Mean Corpuscular Hgb Concent. 32.7 g/dl (32-36); Mean Platelet Volume 9.9 fl (7.5-11.0); Monocyte (Absolute #) 0.68 (0.0-1.3); Monocytes % 9.6 % (0.0-12.0); Neutrophil % 65.1 % (36.0-66.0); Platelet Count 286 K/mm3 (150-450); Red Blood Count 4.97 M/mm3 (4.1-5.6); Red Cell Distribution Width 14.4 % (11.5-14.0); White Blood Count 7.1 K/mm3 (4.0-10.5)
[2020-06-23 09:52] LABS: ALKALINE PHOSPHATASE 180 U/L (38-126); ANION GAP 15.7 MEQ/L (5-15); BLOOD UREA NITROGEN 14 mg/dL (9-20); CHLORIDE 100 mmol/L (98-107); Calcium 10.3 mg/dL (8.4-10.2); Carbon Dioxide 29 mmol/L (22-30); Creatinine 1 0.76 mg/dL (0.66-1.25); EST GLOMERULAR FILTRATION RATE > 60.0 ML/MIN; Glucose 128 mg/dL (74-106); LIPASE 77 U/L (23-300); Potassium 3.5 mmol/L (3.5-5.1); SGOT/AST 481 U/L (17-59); SGPT/ALT 528 U/L (0-50); SODIUM 142 mmol/L (137-145); Total Protein 8.4 g/dL (6.3-8.2)
[2020-06-23] MEDS ORDERED: Zofran 4 MG/2 ML VIAL ONE (10:03)
[2020-06-23] MEDS ORDERED: Sodium Chloride 0.9% 1000 ML 1,000 ML ONE ×2 (10:03→12:35)
[2020-06-23] MEDS ORDERED: MORPHINE SULFATE 4 MG INJ ONE (10:03)
--- NOTE | 2020-06-23 10:52 | XRAY ---
Indication: Lower abdomen pain. Multiple contiguous axial images obtained through the abdomen and pelvis using 80 cc Isovue 370 contrast. Comparison: June 07, 2018. Lung bases remain clear. Heart is not enlarged. Noncontrasted stomach and bowel loops remain nonobstructed again with normal appendix and minimal sigmoid diverticulosis. Gallbladder now demonstrates minimal wall thickening 2-3 mm and enhancement without gallstones. Common bile duct is now prominent up to 9 mm. No free fluid/air. Remaining liver, pancreas, spleen, adrenal glands, kidneys, ureters, bladder, and aorta appear unremarkable. No pathologic retroperitoneal lymphadenopathy. Osseous structures intact. Impression: 1. New minimal gallbladder wall thickening/enhancement without gallstones. Also new prominent common bile duct up to 9 mm. Rule out acalculous cholecystitis. Gallbladder sonogram may yield further information if clinically warranted. 2. Stable sigmoid diverticulosis. 3. Remaining CT abdomen/pelvis with contrast exam is negative.
[2020-06-23 11:00] LABS: Appearance CLEAR (CLEAR); Bilirubin MODERATE (NEGATIVE); Blood NEGATIVE Ery/ul (0-5); Glucose NEGATIVE (NEGATIVE); Ketones MODERATE (NEGATIVE); Leukocyte Esterase NEGATIVE (NEGATIVE); Mucus MANY /HPF (NEGATIVE); Nitrite NEGATIVE (NEGATIVE); Protein,Urine Dip 100 (Negative); Specific Gravity 1.031 (1.005-1.025); Urobilinogen 4 mg/dL (0-1)
[2020-06-23 11:05] LABS: Bacteria FEW /HPF (NEGATIVE); Epithelial Cells FEW /HPF (FEW); RBC 0-2 /HPF (0-2)
[2020-06-23] MEDS ORDERED: Zosyn 3.375 GM Vial 3.375 GM in Sodium Chloride 100ML MINI-BAG PLUS 100 ML IV ONE (11:55)
[2020-06-23 12:06] VITALS: O2SAT 98
--- NOTE | 2020-06-23 12:23 | XRAY ---
Indication: Cholecystitis. Two-dimensional gallbladder sonogram performed. Comparison: None Pancreas not well seen due to overlying bowel gas. Gallbladder demonstrates numerous tiny intraluminal gallstones. No abnormal gallbladder wall thickening or pericholecystic fluid. Common bile duct measures 5.4 mm. No intrahepatic biliary distention. Remaining visualized liver and right kidney sonographically unremarkable. Right kidney measures 12 cm in length. No ascites. Impression: Cholelithiasis without cholecystitis/biliary distention. Nonvisualization pancreas.
[2020-06-23] MEDS ORDERED: Sodium Chloride 100ML MINI-BAG PLUS 100 ML IV ONE (12:36)
[2020-06-23] MEDS ORDERED: Zosyn 3.375 GM Vial IV ONE (12:36)
[2020-06-23] MEDS ORDERED: Sodium Chloride 0.9% 1000 ML 1,000 ML IV SCH (12:45)
[2020-06-23 14:03] VITALS: BP 118/76
[2020-06-23 14:04] VITALS: PULSE 65
== END 2020-06-23 14:29 | disposition short-term general hospital (02) ==
LOC: ED 08:29
DX: K81.9 Cholecystitis, unspecified (principal)
CPT/HCPCS: 36000; 36415; 74177; 76705; 80053; 81001; 82150; 83690; 85025; 96360; 96374; 96375; 99285; J2270; J2405

== ENCOUNTER 2022-03-30 15:45 | Emergency (ER) | payer OTHER ==
--- NOTE | 2022-03-30 16:43 | ERPHSYRPT ---
- History of Present Illness Time Seen by Provider: 03/30/22 16:38 Historian: patient, family Exam Limitations: no limitations Patient Subjective Stated Complaint: C/O Nausea for the past 4 days. States that he has a fever today but has not taken any fever reducing medications at home. C/O soreness to his tongue and that liquids taste metallic. Now having "colon pain" and lower abdominal pain. Triage Nursing Assessment: Patient ambulated back to ED. He is alert and oriented. No SOB. [place] WNL. Skin tone normal. Patient speaking rapidly. Physician History: pt is SP GB and bile duct surgery some time ago and bout of colitis years ago , now presenting with 4 day Hx of abd pain and unable to eat even with Zofran, and diarrhea x 2 days , dry mouth and painful tongue - no lesions seen in mouth. swallowing OK in ER. Tender disfuse abd without peritoneal signs. No rash. CHest clear. No CP or SOBreath reported. No Trauma. Hx confirmed by independent interview with . Timing/Duration: day(s) Activities at Onset: none Quality: cramping, sharpness, stabbing Abdominal Pain Onset Location: epigastric, generalized abdomen Pain Radiation: epigastric Severity of Pain-Max: moderate Severity of Pain-Current: moderate Modifying Factors: Improves With: nothing Associated Symptoms: diarrhea, nausea, vomiting Previous symptoms: same symptoms as today, other (with GB and colitis) Allergies/Adverse Reactions: No Known Drug Allergies Allergy (Verified 03/30/22 15:55) Home Medications: No Reportable Medications [No Reported Medications] 06/23/20 [History] Hx Tetanus, Diphtheria Vaccination/Date Given: Yes Hx Influenza Vaccination/Date Given: No Hx Pneumococcal Vaccination/Date Given: No Immunizations Up to Date: Yes Travel Risk - International Travel Have you traveled outside of the country in past 3 weeks: No - Coronavirus Screening Are you exhibiting any of the following symptoms?: Yes Symptoms: Fever, Vomiting/Diarrhea Close contact with a COVID-19 positive Pt in past 14-21 Days: No - Vaccine Status Have you recieved a Covid-19 vaccination: Yes [employer]: [employer] - Vaccination Dates Date of 2cond Vaccination (if applicable): ? - Review of Systems Constitutional: No Fever, No Chills Eyes: No Symptoms Ears, Nose, & Throat: No Symptoms Respiratory: No Cough, No Dyspnea Cardiac: No Chest Pain, No Edema, No Syncope Abdominal/Gastrointestinal: Abdominal Pain, Nausea, Vomiting, Diarrhea Genitourinary Symptoms: No Dysuria Musculoskeletal: No Symptoms, No Back Pain, No Neck Pain Skin: No Symptoms, No Rash Neurological: No Dizziness, No Focal Weakness, No Sensory Changes Psychological: No Symptoms Endocrine: No Symptoms Hematologic/Lymphatic: No Symptoms Immunological/Allergic: No Symptoms All Other Systems: Reviewed and Negative - Past Medical History Pertinent Past Medical History: Yes Neurological History: Migraines ENT History: No Pertinent History Cardiac History: No Pertinent History Respiratory History: No Pertinent History Endocrine Medical History: No Pertinent History Musculoskeletal History: Osteoarthritis GI Medical History: Colitis, Gallbladder Disease, Hernia Psycho-Social History: Depression Other Medical History: phenobarbital for migraines in the past - Past Surgical History Past Surgical History: Yes Gastrointestinal: Cholecystectomy, Hernia Repair Other Surgical History: collar bone - Social History Smoking Status: Never smoker Exposure to second hand smoke: No Drug Use: none Patient Lives Alone: No Significant Family History: no pertinent family hx - Nursing Vital Signs Nursing Vital Signs: Initial Vital Signs Temperature 98 F 03/30/22 15:55 Pain Scale Pain Intensity 3 - Physical Exam General Appearance: mild distress, alert Eye Exam: PERRL/EOMI, eyes nml inspection Ears, Nose, Throat Exam: normal ENT inspection, pharynx normal, moist mucous membranes Neck Exam: normal inspection, non-tender, supple, full range of motion Respiratory Exam: normal breath sounds, lungs clear, No respiratory distress Cardiovascular Exam: regular rate/rhythm, normal heart sounds Gastrointestinal/Abdomen Exam: soft, tenderness, guarding, No mass, No pulsatile mass Rectal Exam: deferred Back Exam: normal inspection, normal range of motion, No CVA tenderness, No vertebral tenderness Extremity Exam: normal inspection, normal range of motion, pelvis stable Neurologic Exam: alert, oriented x 3, cooperative, normal mood/affect, nml cerebellar function, sensation nml, No motor deficits Skin Exam: normal color, warm, dry SpO2 Interpretation: normal SpO2: 98 O2 Delivery: Room Air - Course Nursing assessment & vital signs reviewed: Yes Ordered Tests: Active Orders 24 hr Category Date Time Status IV Insertion STAT Care 03/30/22 16:44 Active ABDOMEN AND PELVIS W/0 CONTRAS [CT] Stat Exams 03/30/22 16:45 Completed AMYLASE Stat Lab 03/30/22 17:25 Completed CBC W DIFF Stat Lab 03/30/22 17:25 Completed CMP Stat Lab 03/30/22 17:25 Completed LIPASE Stat Lab 03/30/22 17:25 Completed Lactic Acid Stat Lab 03/30/22 17:20 Completed UA W/RFX UR CULTURE Stat Lab 03/30/22 17:24 Completed Medication Summary Discontinued Medications Generic Name Dose Route Start Last Admin Trade Name Cece PRN Reason Stop Dose Admin Diphenhydramine HCl 25 mg 03/30/22 16:44 03/30/22 17:21 Diphenhydramine Hcl 50 Mg/Ml Vial IV 03/30/22 16:45 25 mg STAT ONE Administration Diphenhydramine HCl Confirm 03/30/22 17:08 Diphenhydramine Hcl 50 Mg/Ml Vial Administered 03/30/22 17:09 Dose 50 mg .ROUTE .STK-MED ONE Famotidine 20 mg 03/30/22 16:44 03/30/22 17:17 Famotidine 20 Mg/1 Vial IV 03/30/22 16:45 20 mg STAT ONE Administration Famotidine Confirm 03/30/22 17:08 Famotidine 20 Mg/1 Vial Administered 03/30/22 17:09 Dose 20 mg IV .STK-MED ONE Sodium Chloride 1,000 mls @ 999 mls/hr 03/30/22 16:44 03/30/22 18:43 Sodium Chloride 0.9% 1000 Ml IV 03/30/22 17:44 Infused .Q1H1M STA Infusion Sodium Chloride Confirm 03/30/22 17:09 Sodium Chloride 0.9% 1000 Ml Administered 03/30/22 17:10 Dose 1,000 mls @ ud .ROUTE .STK-MED ONE Morphine Sulfate 4 mg 03/30/22 16:44 03/30/22 17:22 Morphine Sulfate 4 Mg/Ml Injection IV 03/30/22 16:45 4 mg STAT ONE Administration Morphine Sulfate Confirm 03/30/22 17:09 Morphine Sulfate 4 Mg/Ml Injection Administered 03/30/22 17:10 Dose 4 mg .ROUTE .STK-MED ONE Ondansetron HCl 4 mg 03/30/22 16:44 03/30/22 17:15 Ondansetron Hcl 4 Mg/2 Ml Vial IV 03/30/22 16:45 4 mg STAT ONE Administration Ondansetron HCl Confirm 03/30/22 17:08 Ondansetron Hcl 4 Mg/2 Ml Vial Administered 03/30/22 17:09 Dose 4 mg .ROUTE .STK-MED ONE Pantoprazole Sodium 40 mg 03/30/22 16:44 03/30/22 17:18 Pantoprazole 40 Mg Vial IV 03/30/22 16:45 40 mg STAT ONE Administration Pantoprazole Sodium Confirm 03/30/22 17:08 Pantoprazole 40 Mg Vial Administered 03/30/22 17:09 Dose 40 mg IV .STK-MED ONE Lab/Rad Data: Laboratory Result Diagrams 03/30/22 17:25 03/30/22 17:25 Laboratory Results 03/30/22 03/30/22 03/30/22 Range/Units 17:25 17:25 17:24 WBC 12.0 H (4.0-10.5) x10^3/uL RBC 5.37 (4.1-5.6) x10^6/uL Hgb 15.9 (12.5-18.0) g/dL Hct 48.4 (42-50) % MCV 90.1 (78-100) fL MCH 29.6 (26-32) pg MCHC 32.9 (32-36) g/dL RDW 13.7 (11.5-14.0) % Plt Count 296 (150-450) x10^3/uL MPV 9.4 (7.5-11.0) fL Gran % 57.4 (36.0-66.0) % Immature Gran % (Auto) 0.3 (0.00-0.4) % Nucleat RBC Rel Count 0.0 (0.00-0.1) % Eos # (Auto) 0.26 (0-0.5) x10^3/uL Immature Gran # (Auto) 0.04 H (0.00-0.03) x10^3u/L Absolute Lymphs (auto) 3.64 (1.0-4.6) x10^3/uL Absolute Monos (auto) 1.13 (0.0-1.3) x10^3/uL Absolute Nucleated RBC 0.00 (0.00-0.01) x10^3u/L Lymphocytes % 30.2 (24.0-44.0) % Monocytes % 9.4 (0.0-12.0) % Eosinophils % 2.2 (0.00-5.0) % Basophils % 0.5 (0.0-0.4) % Absolute Granulocytes 6.91 H (1.4-6.9) x10^3/uL Basophils # 0.06 (0-0.4) x10^3/uL Sodium 142 (137-145) mmol/L Potassium 3.3 L (3.5-5.1) mmol/L Chloride 108 H (98-107) mmol/L Carbon Dioxide 20 L (22-30) mmol/L Anion Gap 17.2 H (5-15) MEQ/L BUN 24 H (9-20) mg/dL Creatinine 0.79 (0.66-1.25) mg/dL Estimated GFR > 60.0 ML/MIN Glucose 107 H (74-106) mg/dL Lactic Acid (0.4-2.0) Calcium 10.5 H (8.4-10.2) mg/dL Total Bilirubin 1.30 (0.2-1.3) mg/dL AST 41 (17-59) U/L ALT 40 (0-50) U/L Alkaline Phosphatase 89 (38-126) U/L Serum Total Protein 9.5 H (6.3-8.2) g/dL Albumin 5.3 H (3.5-5.0) g/dL Amylase 107 (30-110) U/L Lipase 65 (23-300) U/L Urine Color Dark Yellow (Yellow) Urine Appearance Clear (Clear) Urine pH 5.5 (4.6-8.0) Ur Specific [place] >=1.030 A (1.005-1.030) Urine Protein 30 (Negative) Urine Glucose (UA) Negative (Negative) mg/dL Urine Ketones >=160 A (Negative) Urine Blood Negative (Negative) Urine Nitrite Negative (Negative) Urine Bilirubin Negative (Negative) Urine Urobilinogen 1.0 A (0.2) mg/dL Ur Leukocyte Esterase Negative (Negative) U Hyaline Cast (Auto) 3-5 A (0-2) /LPF Urine Microscopic RBC 0-2 (0-5) /HPF Urine Microscopic WBC 3-5 (0-5) /HPF Ur Epithelial Cells None Seen (None Seen) /HPF Urine Bacteria None Seen (None Seen) /HPF Urine Culture Reflexed NO (NO) 03/30/22 Range/Units 17:20 WBC (4.0-10.5) x10^3/uL RBC (4.1-5.6) x10^6/uL Hgb (12.5-18.0) g/dL Hct (42-50) % MCV (78-100) fL MCH (26-32) pg MCHC (32-36) g/dL RDW (11.5-14.0) % Plt Count (150-450) x10^3/uL MPV (7.5-11.0) fL Gran % (36.0-66.0) % Immature Gran % (Auto) (0.00-0.4) % Nucleat RBC Rel Count (0.00-0.1) % Eos # (Auto) (0-0.5) x10^3/uL Immature Gran # (Auto) (0.00-0.03) x10^3u/L Absolute Lymphs (auto) (1.0-4.6) x10^3/uL Absolute Monos (auto) (0.0-1.3) x10^3/uL Absolute Nucleated RBC (0.00-0.01) x10^3u/L Lymphocytes % (24.0-44.0) % Monocytes % (0.0-12.0) % Eosinophils % (0.00-5.0) % Basophils % (0.0-0.4) % Absolute Granulocytes (1.4-6.9) x10^3/uL Basophils # (0-0.4) x10^3/uL Sodium (137-145) mmol/L Potassium (3.5-5.1) mmol/L Chloride (98-107) mmol/L Carbon Dioxide (22-30) mmol/L Anion Gap (5-15) MEQ/L BUN (9-20) mg/dL Creatinine (0.66-1.25) mg/dL Estimated GFR ML/MIN Glucose (74-106) mg/dL Lactic Acid 1.7 (0.4-2.0) Calcium (8.4-10.2) mg/dL Total Bilirubin (0.2-1.3) mg/dL AST (17-59) U/L ALT (0-50) U/L Alkaline Phosphatase (38-126) U/L Serum Total Protein (6.3-8.2) g/dL Albumin (3.5-5.0) g/dL Amylase (30-110) U/L Lipase (23-300) U/L Urine Color (Yellow) Urine Appearance (Clear) Urine pH (4.6-8.0) Ur Specific [place] (1.005-1.030) Urine Protein (Negative) Urine Glucose (UA) (Negative) mg/dL Urine Ketones (Negative) Urine Blood (Negative) Urine Nitrite (Negative) Urine Bilirubin (Negative) Urine Urobilinogen (0.2) mg/dL Ur Leukocyte Esterase (Negative) U Hyaline Cast (Auto) (0-2) /LPF Urine Microscopic RBC (0-5) /HPF Urine Microscopic WBC (0-5) /HPF Ur Epithelial Cells (None Seen) /HPF Urine Bacteria (None Seen) /HPF Urine Culture Reflexed (NO) - Progress Progress: improved, re-examined Progress Note: 03/30/22 20:42 discussed with pt and that we have not determined a cause for his pain and symptoms. THey understand that a more serious condition may be evolving undetected adn choose DC with outpt f/u rather than further eval in ER or admission at this time and have the capacity to make this choice. Discussed scripts for compazine and zithramax for enteric infection aslo ans they wish to have these and also to restart his OTC pepcid . Counseled pt/family regarding: lab results, diagnosis, need for follow-up, rad results - Departure Departure Disposition: Home Clinical Impression: Abdominal pain of unknown etiology Condition: Good Critical Care Time: No Referrals: KEVIN NGO MD [Primary Care Provider] - Follow up/PCP as directed Instructions: Abdominal Pain, Adult ED Additional Instructions: we are providing treatment for infection and nausea, but there still may be other conditions evolving and followup with your DrAna is important. You should restart your ulcer med also and have your potassium rechecked. focus on liquids these next few days return meantime if not improving ,increased pain , vomiting, fever or other concerns.
[2022-03-30] MEDS ORDERED: MORPHINE SULFATE 4 MG INJ IV ONE (16:44)
[2022-03-30] MEDS ORDERED: Zofran 4 MG/2 ML VIAL IV ONE (16:44)
[2022-03-30] MEDS ORDERED: BENADRYL 50 MG/ML IV ONE (16:44)
[2022-03-30] MEDS ORDERED: PROTONIX 40 MG IV IV ONE ×2 (16:44→17:08)
[2022-03-30] MEDS ORDERED: Pepcid 20 MG VIAL IV ONE ×2 (16:44→17:08)
[2022-03-30] MEDS ORDERED: Sodium Chloride 0.9% 1000 ML 1,000 ML IV STA (16:44)
[2022-03-30] MEDS ORDERED: BENADRYL 50 MG/ML ONE (17:08)
[2022-03-30] MEDS ORDERED: Zofran 4 MG/2 ML VIAL ONE (17:08)
[2022-03-30] MEDS ORDERED: MORPHINE SULFATE 4 MG INJ ONE (17:09)
[2022-03-30] MEDS ORDERED: Sodium Chloride 0.9% 1000 ML 1,000 ML ONE (17:09)
[2022-03-30 17:28] LABS: Absolute Neutrophil Ct (ANC) 6.91 x10^3/uL (1.4-6.9); BASOPHIL % 0.5 % (0.0-0.4); Basophil (Absolute #) 0.06 x10^3/uL (0-0.4); Eosinophil % 2.2 % (0.00-5.0); Eosinophil (Absolute #) 0.26 x10^3/uL (0-0.5); Hematocrit 48.4 % (42-50); Hemoglobin 15.9 g/dL (12.5-18.0); IMMATURE GRAN # 0.04 x10^3u/L (0.00-0.03); IMMATURE GRAN % 0.3 % (0.00-0.4); Lymphocyte (Absolute #) 3.64 x10^3/uL (1.0-4.6); Lymphocytes % 30.2 % (24.0-44.0); Mean Cell Volume 90.1 fL (78-100); Mean Corpuscular Hemoglobin 29.6 pg (26-32); Mean Corpuscular Hgb Concent. 32.9 g/dL (32-36); Mean Platelet Volume 9.4 fL (7.5-11.0); Monocyte (Absolute #) 1.13 x10^3/uL (0.0-1.3); Monocytes % 9.4 % (0.0-12.0); Neutrophil % 57.4 % (36.0-66.0); Platelet Count 296 x10^3/uL (150-450); Red Blood Count 5.37 x10^6/uL (4.1-5.6); Red Cell Distribution Width 13.7 % (11.5-14.0)
[2022-03-30 17:30] VITALS: O2SAT 98
[2022-03-30 17:36] LABS: Appearance Clear (Clear); Bacteria None Seen /HPF (None Seen); Bilirubin Negative (Negative); Blood Negative (Negative); Epithelial Cells None Seen /HPF (None Seen); Glucose, Urine Negative (Negative); Ketones >=160 (Negative); Leukocyte Esterase Negative (Negative); Nitrite Negative (Negative); Ph 5.5 (4.6-8.0); Protein,Urine Dip 30 (Negative); RBC 0-2 /HPF (0-5); Specific Gravity >=1.030 (1.005-1.030)
[2022-03-30 17:39] LABS: ADD URINE CULTURE? NO (NO)
[2022-03-30 17:42] LABS: ALBUMIN 5.3 g/dL (3.5-5.0); ALKALINE PHOSPHATASE 89 U/L (38-126); AMYLASE 107 U/L (30-110); ANION GAP 17.2 MEQ/L (5-15); BLOOD UREA NITROGEN 24 mg/dL (9-20); CHLORIDE 108 mmol/L (98-107); Calcium 10.5 mg/dL (8.4-10.2); Carbon Dioxide 20 mmol/L (22-30); Creatinine 1 0.79 mg/dL (0.66-1.25); EST GLOMERULAR FILTRATION RATE > 60.0 ML/MIN; Glucose 107 mg/dL (74-106); LIPASE 65 U/L (23-300); Potassium 3.3 mmol/L (3.5-5.1); SGOT/AST 41 U/L (17-59); SGPT/ALT 40 U/L (0-50); SODIUM 142 mmol/L (137-145); Total Protein 9.5 g/dL (6.3-8.2)
--- NOTE | 2022-03-30 20:20 | XRAY ---
Indication: Abdomen pain, nausea, vomiting, diarrhea. History colitis. Multiple contiguous axial images obtained through the abdomen and pelvis without contrast. Comparison: June 23, 2020 Lung bases clear. Heart not enlarged. Noncontrasted stomach and bowel loops appear nonobstructed with normal appendix. Again minimal sigmoid diverticulosis without diverticulitis. Interval cholecystectomy. No free fluid/air. Remaining liver, pancreas, spleen, adrenal glands, kidneys, ureters, bladder, and aorta are unremarkable for noncontrast exam. Osseous structures intact. No ventral or inguinal hernias. Impression: 1. Again minimal sigmoid diverticulosis. 2. Remaining CT abdomen/pelvis without contrast exam is negative. Comment: Preliminary interpretation made by [facility]. No critical discrepancy.
[2022-03-30 20:31] VITALS: BP 145/64; PULSE 74
[2022-03-30] MEDS ORDERED: Zithromax 250 MG TABLET PO ONE (20:52)
[2022-03-30] MEDS ORDERED: K-LYTE PO ONE (20:52)
[2022-03-30] MEDS ORDERED: Zithromax 250 MG TABLET ONE (20:54)
[2022-03-30] MEDS ORDERED: K-LYTE ONE (20:54)
== END 2022-03-30 21:07 | disposition home or self-care (01) ==
LOC: ED 15:45
DX: R10.9 Unspecified abdominal pain (principal); R19.7 Diarrhea, unspecified; R68.2 Dry mouth, unspecified
CPT/HCPCS: 36000; 36415; 74176; 80053; 81001; 82150; 83605; 83690; 85025; 96360; 96374; 96375; 99284; J1200; J2270; J2405; A9270-GY